=== PATIENT | female | born 1965 | race Caucasian/White ===

== ENCOUNTER → 2017-05-07 | Outpatient (CLI) | payer MEDICAID ==
[~2017-05-07] MED LIST: CETI10CA3 PO; FAMO1TAB37 PO
[2017-05-07 12:23] LABS: AUTOMATED NEUTROPHIL # 2.6 TH/MM3 (1.8-7.7); BASOPHIL % 0.9 % (0.0-2.0); EOSINOPHIL # 0.1 TH/MM3 (0-0.4); EOSINOPHIL % 2.1 % (0.0-4.0); HEMATOCRIT 37.6 % (35.0-46.0); HEMOGLOBIN 12.8 GM/DL (11.6-15.3); LYMPH % 33.6 % (9.0-44.0); LYMPHOCYTE # 1.7 TH/MM3 (1.0-4.8); MEAN CELL VOLUME 99.1 FL (80.0-100.0); MEAN CORPUSCULAR HEMOGLOBIN 33.8 PG (27.0-34.0); MEAN CORPUSCULAR HGB CONC 34.1 % (32.0-36.0); MEAN PLATELET VOLUME 7.9 FL (7.0-11.0); MONOCYTE # 0.6 TH/MM3 (0-0.9); NEUT % 51.4 % (16.0-70.0); PLATELET COUNT 152 TH/MM3 (150-450); RED BLOOD COUNT 3.79 MIL/MM3 (4.00-5.30); RED CELL DISTRIBUTION WIDTH 13.3 % (11.6-17.2); WHITE BLOOD COUNT 5.1 TH/MM3 (4.0-11.0)
[2017-05-07 12:30] LABS: INTERNATIONAL NORMALIZED RATIO 1.1 RATIO; PROTHROMBIN TIME - PATIENT 11.6 SEC (9.8-11.6)
--- NOTE | 2017-05-07 12:36 | RADRPT ---
EXAM DATE/TIME: 05/07/2017 12:22 [place] COMPARISON: No previous studies available for comparison. INDICATIONS : Evaluate for pneumonia, pneumothorax or communicable disease. Pre op for D & C. MEDICAL HISTORY : None. SURGICAL HISTORY : Appendectomy. section. D & C. LEEP. ENCOUNTER: Initial ACUITY: 1 day PAIN SCORE: 0/10 LOCATION: chest FINDINGS: PA and lateral views of the chest demonstrate the lungs to be symmetrically aerated without evidence of mass, infiltrate or effusion. The cardiomediastinal contours are unremarkable. Osseous structure s are intact. CONCLUSION: No acute disease. Andrei Dominguez MD on May 07, 2017 at 12:33 Board Certified Radiologist. This report was verified electronically.
[2017-05-07 12:46] LABS: ALBUMIN 3.5 GM/DL (3.4-5.0); AST (GOT) 102 U/L (15-37); BICARBONATE 27.5 MEQ/L (21.0-32.0); BLOOD UREA NITROGEN 6 MG/DL (7-18); CALCIUM 9.1 MG/DL (8.5-10.1); CHLORIDE 102 MEQ/L (98-107); CREATININE 0.71 MG/DL (0.50-1.00); GLOMERULAR FILTRATION RATE 87 ML/MIN (>89); GLUCOSE,FASTING 121 MG/DL (74-99); SODIUM (NA) 135 MEQ/L (136-145)
[2017-05-07 12:47] LABS: ALT (GPT) 58 U/L (10-53)
[2017-05-07 12:52] LABS: ALKALINE PHOSPHATASE 126 U/L (45-117); TOTAL BILIRUBIN ADULT 0.4 MG/DL (0.2-1.0); TOTAL PROTEIN 7.7 GM/DL (6.4-8.2)
--- NOTE | 2017-05-08 21:26 | EKG ---
Date Performed: 05/07/2017 Time Performed: 11:53:04 PTAGE: 51 years EKG: Sinus rhythm Very slight ST abnormality NORMAL ECG NO PREVIOUS TRACING DOCTOR: Hector Booth Interpretating Date/Time 05/08/2017 21:25:42
== END ==
LOC: CPRE 11:34
PROVIDERS: ATTEND Obstetrics & Gynecology Gynecologic Oncology
DX: Z01.812 Encounter for preprocedural laboratory examination (principal); Z01.810 Encounter for preprocedural cardiovascular examination; Z01.811 Encounter for preprocedural respiratory examination; C53.9 Malignant neoplasm of cervix uteri, unspecified
CPT/HCPCS: 36415; 71046; 80053; 84703; 85025; 85610; 85730; 93005

== ENCOUNTER → 2017-05-12 | Day surgery (SDC) | payer MEDICAID ==
[~2017-05-12] VITALS: Ht 162.6 cm; Wt 63.4 kg
[~2017-05-12] MED LIST changes: +*morphine SULFATE 4 MG/ML PERIprocedure ONLY ONE; +CHLORHEXIDINE GLUCONATE 2 % 1 PACK (2 CLOTHS) TOPICAL PRN; +DEXAMETHASONE SOD PHOS 4 MG/ML VIAL IV ONE; +DO NOT ADM ANY ANTICOAGULANT DRUGS PRN; +ESMOLOL HCL 100 MG/10 ML VIAL IV ONE; +GLYCOPYRROLATE 1 MG/5 ML SYRINGE IV PUSH ONE; +HYDROmorphone HCL PF 2 MG/ML VIAL ONE; +KETOROLAC TROMETHAMINE 30 MG/ML (IVP) VIAL IV PUSH PRN; +KETOROLAC TROMETHAMINE 30 MG/ML (IVP) VIAL ONE; +LACTATED RINGER'S 1000 ML INJ 1,000 ML IV ONE; +LACTATED RINGER'S 1000 ML IV PRN; +LIDOCAINE 1%/EPINEPHrine 1:100,000 SOLN 50 ML VIAL ONE; +LIDOCAINE HCL 1% PF 5 ML SYRINGE OTHER ONE; +METOPROLOL TARTRATE 25 MG TAB PO PRN; +MIDAZOLAM HCL 2 MG/2 ML VIAL ONE; +NEOSTIGMINE 5 MG/5 ML SYRINGE IV PUSH ONE; +ONDANSETRON HCL 4 MG/2 ML VIAL IV ONE; +PHENYLEPH/NS 1000 MCG/10 ML SYR IV ONE; +POVIDONE IODINE 5% (ANTISEPSIS KIT) 4 APPLICATIONS EACH NARE PRN; +PROPOFOL 200 MG/20 ML AMP IV ONE; +ROCURONIUM INJ 50 MG/5 ML SYRINGE IV PUSH ONE; +SILVER NITR/POTASSIUM NITRATE APPLICATORS ONE; +SODIUM CHLORID 0.9% 500 ML IV PRN; +oxyCODONE/ACETAMINOPHEN 5 MG/325 MG TAB PO PRN
[2017-05-12 17:20] VITALS: BP 149/81; PULSE 96; RESP 14; TEMP 97; O2SAT 98
--- NOTE | 2017-05-13 07:24 | MP ---
cc: JENNIFER MEZA MD MOLPUS, KELLY L. MD ALVAREZ-FARINETTI, ALVARO DATE OF SURGERY 05/12/2017 PREOPERATIVE DIAGNOSIS Squamous cell carcinoma of probable cervical origin. 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 PROCEDURE Examination under anesthesia, cervix biopsies, cystoscopy, rigid proctosigmoidoscopy. SURGEON Aniyah Hale MD WELD INSPECTOR [place] assistant health educator ANESTHESIA Laryngeal mask anesthesia ESTIMATED BLOOD LOSS [address] Taj Martinez, Radiation Oncology HISTORY This is a 51-year-old female found on recent gynecologic exam to have friable tissue in the region of the endocervix. Pap smear was abnormal. Biopsy of the endocervical tissue showed invasive squamous cell carcinoma. Imaging showed a prominent cervix. The uterus was enlarged and appeared heterogeneous with what appeared to be blood in the cavity approximately 9 cm greatest dimension. No adenopathy or obvious measurable metastatic disease reported on CT imaging. She was counseled regarding the need to obtain additional information to further try to clarify the origin and extent of the problems which will help us with treatment recommendations. Given the duration of some bleeding and pain, as well as the outside physicians finding, she was counseled regarding concern of locally advanced infiltrative tumor that may require radiation and chemotherapy as treatment. Accordingly with her consent, Dr. Espinoza of radiation oncology was made aware of her ahead of time and was consulted intraoperatively who also performed exam under anesthesia. FINDINGS On exam under anesthesia, there was no appreciably enlarged inguinal lymph nodes. External genitalia without mass or lesion. The cervix appears abnormal as it is retracted in an almost flush with the vaginal apex consistent with multiple prior LEEP conization procedures in the past. On the surface, the visible part of the cervix appears relatively smooth and normal. However with palpation, it is clear that the cervix itself is markedly enlarged at least 6 cm in diameter. There is thick infiltrative tumor in the left parametria that extends all the way to the left pelvic sidewall that is affixes that tissue in placed. The right parametria is also quite thickened and nodular, although there appears to palpably be a small tumor free space between the right parametria and pelvic sidewall. In the endocervical canal, there was friable tissue replacing the cervix in the transformation zone and extending into the cervical canal expanding the cervix. On cystoscopy, the bladder mucosa appears smooth circumferentially. The ureteral ostia are visualized. There is efflux of urine bilaterally. There was no mass or polyp. No infiltration into the bladder. On rigid proctosigmoidoscopy to a depth of 16 cm, the mucosa appears normal. There is no mass or polyp. No obvious invasion. There is some extrinsic compression at that depth and above which there was inadequate prep and visibility was limited, but no tumor could be seen or appreciated to that depth. PROCEDURE She was taken to the operating room, placed in the dorsal lithotomy position after laryngeal mask anesthesia was administered. A time-out was undertaken. She was identified by sight recognition and hospital ID tuan and the proposed procedure was reviewed and confirmed. She was carefully positioned in the lithotomy position. Exam under anesthesia was performed with findings as described above. Based on the locally advanced nature of this tumor, Dr. Espinoza was again contacted as an intraoperative consultation. She was prepped and draped in a sterile fashion. Biopsies were taken from the transformation zone of the cervix which bled quite easily and the Ray-Traci pack was placed in that area. Cystoscopy was performed using a 30 degrees scope with findings as described above and the bladder was drained. The Ray-Traci was removed from the cervix and vagina and Dr. Espinoza performed pelvic exam and concurred with the findings as described above and so a pack was replaced into the vagina. Rigid proctosigmoidoscopy was performed with findings as described above. After completion of proctosigmoidoscopy, a change of sterile gloves was undertaken. The Ray-Traci sponge was removed from the vagina. Monsel's solution was placed up into the endocervical canal and then Surgicel was packed into the lower uterine segment cervical canal extending out just a small amount onto the ectocervix. An additional Monsel's was applied to the areas still bleeding at the 3 o'clock position and 12 o'clock position and a Ray-Traci pack was again placed in the vagina. She was observed for a period of approximately 8-10 minutes. The Ray-Traci pack was removed. Pelvic exam was performed using handheld retractors. All sites were completely hemostatic. There were no remaining foreign objects in the vagina other than the intentionally placed Surgicel. Preliminary and final counts were correct. She was returned to dorsal supine position and was pending reversal of anesthesia when I left the operating room to precede to the Post Anesthesia Care Unit. MD JOSEPH Medina/MARNI /3:46 PM /6:53 AM
== END | disposition home or self-care (01) ==
LOC: HSDC 11:05
PROVIDERS: ATTEND Obstetrics & Gynecology Gynecologic Oncology
DX: C53.0 Malignant neoplasm of endocervix (principal)
CPT/HCPCS: 00940; 57500; 86850; 86900; 86901; 88305; J1170; J1885; J2250; J2270; J3010; J7120; J1100; J2370; J2405; J2710